=== PATIENT | female | born 1935 | race Caucasian/White ===

== ENCOUNTER → 2020-09-21 | Outpatient (CLI) | payer MEDICARE | LOC: M.MRI 08:38 | PROVIDERS: ATTEND Orthopaedic Surgery | DX: S83.241A Other tear of medial meniscus, current injury, right knee, initial encounter (principal); M17.11 Unilateral primary osteoarthritis, right knee; M25.461 Effusion, right knee; M65.861 Other synovitis and tenosynovitis, right lower leg; X58.XXXA Exposure to other specified factors, initial encounter; Y93.89 Activity, other specified; Y92.89 Other specified places as the place of occurrence of the external cause; Y99.8 Other external cause status ==

== ENCOUNTER → 2020-10-12 | Outpatient (CLI) | payer MEDICARE ==
[2020-10-12 11:27] LABS: ABSOLUTE EOSINOPHILS 0.4 thou/uL (0.0-0.7); ABSOLUTE LYMPHOCYTES 1.4 thou/uL (0.8-5.3); ABSOLUTE MONOCYTES 0.6 thou/uL (0.0-1.2); ABSOLUTE NEUTROPHILS 3.9 thou/uL (1.6-8.1); BASOPHILS 0.3 %; EOSINOPHILS 6.9 %; HEMATOCRIT 32.5 % (37.0-47.0); HEMOGLOBIN 10.8 gm/dL (12.0-15.0); MCH 30.2 pg (26.0-34.0); MCHC 33.2 g/dL (28.0-37.0); MCV 90.9 fL (80.0-100.0); MONOCYTES 9.9 %; MPV 8.7 fl. (7.2-11.1); NUCLEATED RBCS 0 /100WBC; PLATELET COUNT* 250 thou/uL (150-400); POLYS 60.9 %; RBC 3.57 mil/uL (4.20-5.00); RDW-CV 13.7 % (10.5-14.5); WBC 6.4 thou/uL (4.0-11.0)
[2020-10-12 11:37] LABS: INR 0.9; PROTIME 9.9 Seconds (9.20-11.50)
[2020-10-12 11:41] LABS: ALBUMIN 3.7 g/dL (3.4-5.0); CALCIUM 8.8 mg/dL (8.5-10.1); CREATININE 1.2 mg/dL (0.6-1.3); POTASSIUM 4.1 mmol/L (3.5-5.1); TOTAL BILIRUBIN 0.3 mg/dL (<0.1-1.0); TOTAL PROTEIN 7.2 g/dL (6.4-8.2)
--- NOTE | 2020-10-12 15:22 | EKG ---
[place] [address] ELECTROCARDIOGRAM REPORT Name: PIO PEARSON Room: [facility]#: [id number] Admission: 10/12/20 Attend Phys: Sathish Mcgill, Discharge: Date of : 39 Date of Service: 10/12/20 1151 Report #: [id number] THIS REPORT FOR: //name// [facility] Test Date: 2020-10-12 Test Time: 11:51:00 Pat Name: PIO PEARSON Department: Room: Gender: F Marketing Support Manager: : 1935 Requested By: Sathish Mcgill Order Number: [id number] Ivet MD: Gilles Roman Measurements Intervals [place] Rate: 77 P: -17 [place]: 151 QRS: 4 QRSD: 85 T: 62 QT: 396 QTc: 449 Interpretive Statements Sinus rhythm Low voltage, precordial leads Abnormal R-wave progression, early transition No previous ECG available for comparison Electronically Signed On 10-12-2020 15:22:24 CDT by Gilles Roman [email or web address] <ELECTRONICALLY SIGNED> By: Gilles Roman MD, [facility] 10/12/20 1522 1151 1151 Gilles Roman MD, [facility] /EPI
== END ==
LOC: M.LAB 08:32
PROVIDERS: ATTEND Orthopaedic Surgery
DX: Z01.818 Encounter for other preprocedural examination (principal); Z01.812 Encounter for preprocedural laboratory examination

== ENCOUNTER 2020-10-17 06:54 | Observation (INO) | payer MEDICARE ==
[~2020-10-17] VITALS: Ht 167.6 cm; Wt 69.9 kg
[~2020-10-17 06:54] MED LIST: HYDROCHLOROTHIA25 M1 PO; LISINOPRIL20 MG PO; TYLENOL EXTRA500 MG PO
[2020-10-17 08:55] LABS: URINE BILIRUBIN NEGATIVE (Negative); URINE BLOOD NEGATIVE (Negative); URINE CLARITY CLEAR; URINE COLOR YELLOW; URINE GLUCOSE-RANDOM NEGATIVE (Negative); URINE KETONES NEGATIVE (Negative); URINE LEUKOCYTES-REFLEX NEGATIVE (Negative); URINE NITRITE-REFLEX NEGATIVE (Negative); URINE PROTEIN NEGATIVE (Negative); URINE SPECIFIC GRAVITY 1.015 (1.005-1.030); URINE UROBILINOGEN 0.2 E.U./dl (0.2-1.0)
[2020-10-17 14:30] VITALS: BP 149/80
[2020-10-17 16:33] VITALS: BP 142/58
[2020-10-17 20:30] VITALS: BP 150/71
[2020-10-18] VITALS (7 sets, daily range): BP systolic 123–147; BP diastolic 57–68
[2020-10-18 04:48] LABS: CALCIUM 8.3 mg/dL (8.5-10.1); CREATININE 1.2 mg/dL (0.6-1.3); POTASSIUM 4.2 mmol/L (3.5-5.1)
[2020-10-18 04:52] LABS: HEMATOCRIT 27.3 % (37.0-47.0); HEMOGLOBIN 9.4 gm/dL (12.0-15.0)
--- NOTE | 2020-10-18 11:15 | OP ---
[address] [address] OPERATIVE REPORT Name: PIO PEARSON Room: [address] [place]#: [id number] Admission: 10/17/20 Attend Phys: Claude Granados Discharge: Date of : 39 Report #: [id number] THIS REPORT FOR: cc: Danilo Howe MD, Arthur MD Greiner, Robert F. II DO ~ DOC #: [id number] Sathish Mcgill II, DO DATE OF SURGERY: 10/17/2020 PREOPERATIVE DIAGNOSIS: Right knee osteoarthritis. POSTOPERATIVE DIAGNOSIS: Right knee osteoarthritis. PROCEDURE: Right total knee arthroplasty. SURGEON: Sathish Mcgill II, DO EYELET RIVETER: None. ANESTHESIA: General endotracheal. ESTIMATED BLOOD LOSS: 50 mL. ANTIBIOTICS: Ancef preoperatively. DRAINS: Medium Hemovac. COMPLICATIONS: None. INDICATIONS: The patient stable to recovery room. IMPLANTS: Listed in the operative record and progress note. BRIEF HISTORY: The patient was seen in the preoperative area. Preoperative H and P was performed. Site was marked, questions were answered. Risks and benefits were discussed with the patient in detail about surgery. The patient wished to proceed assuming all risks. DESCRIPTION OF PROCEDURE: The patient was taken to the operative suite, placed supine on the operating table with appropriate anesthesia. A well-padded tourniquet applied to the upper thigh, which was inflated to 300 mmHg after gravity exsanguination. The operative knee was sterilely prepped and draped. Surgery began with a midline incision. This was carried down to subcutaneous tissues. A medial parapatellar arthrotomy was performed, carried to the bone. Patella was then everted and excess [place] [address] OPERATIVE REPORT Name: PIO PEARSON Room: [address] [place] [employer]#: [id number] Admission: 10/17/20 Attend Phys: Claude Granados Discharge: Date of : 39 Report #: [id number] femur. Femoral cutting block was then applied, checked with a drop leonor for rotational alignment, pinned into position, and appropriate cuts were made. The 4-in-1 cutting block was then applied, checked for rotational alignment, pinned into position and appropriate cuts were made. The tibia was exposed. Excess meniscus was removed. Retractors were placed on the collateral ligaments. The tibial cutting block was then applied, pinned in appropriate position, checked with the drop leonor for rotational alignment and slope and appropriate cut was made. The tibial bone was removed. Tibial baseplate was then applied, checked for rotational alignment with the drop leonor and pinned in appropriate position. The femur was then applied and box cut was reamed. This was then trialed with an appropriate spacer, which showed excellent fit and fill and excellent stability of the knee through all range of motion. The patella was reamed to appropriate fashion, sized to appropriate size. Three peg holes were drilled and it was then trialled and shown to have excellent flexion and extension and excellent tracking of the patella within the groove. These trials were then removed. The tibia was punched in appropriate fashion. Bone ends were cleansed with Pulsavac irrigation and the cement was mixed and applied to final implants. These were then malleted into position and held the knee in extension and compressed to allow the cement to cure. After it cured, excess was removed using a [place] and osteotome. The wound was then copiously irrigated and the final spacer was then malleted into position. The tourniquet was deflated. Hemostasis was obtained with electrocautery. Pain cocktail was injected. A median Hemovac drain was applied. Capsule was closed with #2 FiberWire and #1 Vicryl in [id number] fashion. Skin was closed with 2-0 Vicryl, running 3-0 Monocryl, Dermabond dressing applied. Eligio wrap and PolarCare applied. The patient transported to the recovery in stable condition. Counts were correct throughout the procedure. Sathish Mcgill II, DO RFG/MAX <ELECTRONICALLY SIGNED> By: Sathish Mcgill II, DO 10/18/20 1115 [id number] Mcgill II, DO /nt
[2020-10-19 03:39] VITALS: BP 136/60
[2020-10-19 04:39] LABS: HEMOGLOBIN 9.5 gm/dL (12.0-15.0)
[2020-10-19] MEDS ORDERED: XARELTO10 MG PO (07:02)
[2020-10-19 08:00] VITALS: BP 143/65
[2020-10-19 16:12] VITALS: BP 132/57
[2020-10-19 17:28] VITALS: BP 132/57
== END 2020-10-19 17:00 | disposition home health service (06) ==
LOC: M.ORTHSURG 06:54 → M.TBA 08:15 → M.ORTHSURG 08:27 → M.TBA 08:51 → M.ORTHSURG 08:51 → EDSTATUS 10:47 → M.ORTHSURG 12:19
PROVIDERS: Family Medicine; Orthopaedic Surgery; ADMIT Internal Medicine; ATTEND Internal Medicine
DX: M17.11 Unilateral primary osteoarthritis, right knee (principal); I10 Essential (primary) hypertension; E78.5 Hyperlipidemia, unspecified; Z79.899 Other long term (current) drug therapy